=== PATIENT | female | born 1970 | race Caucasian/White ===

== ENCOUNTER 2016-08-01 10:06 | Emergency (ER) | payer OTHER | END 2016-08-01 12:22 | disposition home or self-care (01) | LOC: ER1 10:06 | DX: S09.90XA Unspecified injury of head, initial encounter (principal); T14.8 Other injury of unspecified body region; F17.200 Nicotine dependence, unspecified, uncomplicated; Z88.0 Allergy status to penicillin; Y04.2XXA Assault by strike against or bumped into by another person, initial encounter; Y92.009 Unspecified place in unspecified non-institutional (private) residence as the place of occurrence of the external cause | CPT/HCPCS: 70450; 73030; 99283 ==

== ENCOUNTER 2020-08-12 13:45 | Emergency (ER) | payer OTHER ==
[~2020-08-12 13:45] MED LIST: ALPRAZOLAM0.5 MG PO; ASPIRIN 325MG325 MG PO; FLAGYL500 MG PO; LEVAQUIN750 MG PO; NORCO 5-325 TA1 EACH PO
[2020-08-12 16:11] LABS: HEMOGLOBIN 13.5 gm/dl (12.3-15.3); RED BLOOD COUNT 4.55 M/UL (4.00-5.10); WHITE BLOOD COUNT 10.4 K/UL (4.5-11.0)
[2020-08-12] MEDS ORDERED: CLEOCIN HCL300 MG PO (16:29)
[2020-08-12 16:33] LABS: BUN/CREATININE RATIO 27 (0-10)
== END 2020-08-12 17:10 | disposition home or self-care (01) ==
LOC: ER1 13:45
PROVIDERS: Preventive Medicine Occupational Medicine
DX: L03.211 Cellulitis of face (principal); Z88.0 Allergy status to penicillin
CPT/HCPCS: 70486; 80053; 83605; 85025; 85652; 86140; 96374; 96375; 99284; J1885; J7030